=== PATIENT | male | born 1985 | race Two or more races ===

== ENCOUNTER 2023-11-14 17:59 | Emergency (ER) | payer OTHER, SELFPAY ==
[2023-11-14 18:05] VITALS: BP 131/95
[2023-11-14 18:11] VITALS: BMI 23.0
[2023-11-14 18:11] LABS: % Basophils 1.3 % (0-2); % Eosinophils 4.6 % (0-6); % Immature Granulocytes 0.2 % (0-0.5); % Lymphocytes 26.2 % (20.5-51.1); % Monocytes 8.8 % (1.7-9.3); % Neutrophils 58.9 % (42.2-75.2); Absolute Basophils 0.1 10^3/uL (0-0.2); Absolute Eosinophils 0.3 10^3/uL (0-0.7); Absolute Lymphocytes 1.4 10^3/uL (1.2-3.4); Absolute Monocytes 0.5 10^3/uL (0.1-0.6); Absolute Neutrophils 3.2 10^3/uL (1.4-6.5); Hematocrit 40.7 % (39.0-52.0); Hemoglobin 13.8 g/dL (13.0-18.0); Mean Corp Hgb Conc. 33.9 g/dL (33.0-37.0); Mean Corpuscular Hgb 30.1 pg (27.0-31.0); Mean Corpuscular Volume 88.9 fL (80.0-94.0); Mean Platelet Volume 10.9 fL (7.4-10.4); Nucleated Red Blood Cells % 0 % (-); Platelet Count 162 10^3/uL (130-400); Red Blood Cell Count 4.58 10^6/uL (4.70-6.10); Red Cell Dist. Width 13.7 % (11.5-14.5); White Blood Cell Count 5.5 10^3/uL (4.8-10.8)
[2023-11-14 18:24] LABS: ALT (SGPT) 81 U/L (0-50); AST (SGOT) 131 U/L (17-59); Albumin 5.1 g/dl (3.5-5.0); Alkaline Phosphatase 72 U/L (38-126); Blood Urea Nitrogen 16 mg/dl (9-20); Calcium 9.5 mg/dl (8.4-10.2); Carbon Dioxide 16 mmol/L (22-30); Chloride 104 mmol/L (98-107); Estimated Creatinine Clearance > 125 ml/min; Glucose 93 mg/dl (70-99); Potassium 4.1 mmol/L (3.5-5.1); Sodium 142 mmol/L (135-145); Total Bilirubin 0.7 mg/dl (0.2-1.3); Total Protein 7.4 g/dl (6.3-8.2); eGFR > 60.00
--- NOTE | 2023-11-14 18:25 | ED.GENMED ---
History of Present Illness
<Charissa Dubon DO, Resident - Last Filed: 11/14/23 21:04>
General
Chief Complaint: Seizure
Source: patient, police and witness
Exam Limitations: none
Time Seen by Provider: 11/14/23 18:11
History of Present Illness
History of Present Illness:
Pt is a 38 YO M presenting to the ER after a witnessed seizure. He reports feeling tired but denies headaches, NV, dizziness, changes in vision, numbness/ tingling or pain. He drinks 1/5 of vodka or rum daily and last used meth this morning. He has
a history of seizures (last reported per patient in 2022) and has been out of Keppra for 2+ weeks.
If applicable-neuro sx onset
Onset of symptoms known: Yes
Date of onset of symptoms: 11/14/23
Past History
<Charissa Dubon DO, Resident - Last Filed: 11/14/23 21:04>
Past History
ED Past Medical History: Other (seizures)
Patient has exhibited threatening behavior?: No
Social History
Alcohol: Daily
Drug: Marijuana and Other (meth)
Living: [facility]
Review of Systems
<Charissa Dubon DO, Resident - Last Filed: 11/14/23 21:04>
Review of Systems
Constitutional: Reports fatigue
EENT: Reports no symptoms
Respiratory: Reports no symptoms
Cardiac: Reports no symptoms
ABD/GI: Reports no symptoms
Musculoskeletal: Reports no symptoms
Neurological: Reports no symptoms
Phy Exam
<Charissa Dubon DO, Resident - Last Filed: 11/14/23 21:04>
General Physical Exam
General Presentation: well appearing
General age: appears stated age
General Skin: warm and dry
General Habitus: normal
General Mental: alert
General Hydration: appears well hydrated
Eye Exam
Eye Exam: PERRL, cornea clear, conjunctiva normal and visual colon normal
Cardiovascular Exam
Cardiovascular Exam: regular rate/rhythm, no edema, no gallop, no JVD, no murmur and normal peripheral pulses
Pulmonary Exam
Pulmonary Exam: lungs clear, no respiratory distress, no rales, chest non tender, no crackles, no rhonchi, no stridor, no wheezing and no cough
Neurological Exam
Neurological Exam: alert, CN II-XII intact, no motor deficits, normal reflexs, no sensory deficits and speech normal
Musculoskeletal Exam
Musculoskeletal Exam: full ROM and no edema
Course
<Charissa Dubon DO, Resident - Last Filed: 11/14/23 21:04>
Orders/Labs/Results
Orders:
Orders
11/14/23 18:04
Alcohol Urgent
Complete Blood Count/With Diff Urgent
Comprehensive Metabolic Panel Urgent
Keppra (Levetiracetam) [S] Urgent
11/14/23 18:46
Levetiracetam Injectable [Keppra] 1,000 mg IV NOW STA
11/14/23 18:50
Levetiracetam [Keppra] 500 mg PO NOW STA
11/14/23 18:51
Levetiracetam [Keppra] 500 mg PO NOW STA
11/14/23 18:54
Lorazepam [Ativan] 1 mg IV NOW STA
11/14/23 18:56
CT Head W/o Iv Contrast Urgent
Comment:
Reason For Exam: seizure, head contusion
Abnormal Lab Results
11/14/23
18:04
RBC 4.58 L 10^6/uL
(4.70-6.10)
MPV 10.9 H fL
(7.4-10.4)
Carbon Dioxide 16 L mmol/L
(22-30)
AST 131 H U/L
(17-59)
ALT 81 H U/L
(0-50)
Albumin 5.1 H g/dl
(3.5-5.0)
11/14/23 18:04
11/14/23 18:04
Vital Signs
Initial and Last Documented VS:
Initial Vital Signs
Temp Pulse Resp BP Pulse Ox
98.1 F 102 18 131/95 97
11/14/23 18:05 11/14/23 18:05 11/14/23 18:05 11/14/23 18:05 11/14/23 18:05
Last Documented Vital Signs
Temp Pulse Resp BP Pulse Ox
98.1 F 96 23 131/89 99
11/14/23 18:05 11/14/23 20:45 11/14/23 20:45 11/14/23 19:00 11/14/23 20:45
tarun;Modesto Henriquez, - Last Filed: 11/14/23 19:16>
Orders/Labs/Results
Orders:
Orders
11/14/23 18:04
Alcohol Urgent
Complete Blood Count/With Diff Urgent
Comprehensive Metabolic Panel Urgent
Keppra (Levetiracetam) [S] Urgent
11/14/23 18:46
Levetiracetam Injectable [Keppra] 1,000 mg IV NOW STA
11/14/23 18:50
Levetiracetam [Keppra] 500 mg PO NOW STA
11/14/23 18:51
Levetiracetam [Keppra] 500 mg PO NOW STA
11/14/23 18:54
Lorazepam [Ativan] 1 mg IV NOW STA
11/14/23 18:56
CT Head W/o Iv Contrast Urgent
Comment:
Reason For Exam: seizure, head contusion
Abnormal Lab Results
11/14/23
18:04
RBC 4.58 L 10^6/uL
(4.70-6.10)
MPV 10.9 H fL
(7.4-10.4)
Carbon Dioxide 16 L mmol/L
(22-30)
AST 131 H U/L
(17-59)
ALT 81 H U/L
(0-50)
Albumin 5.1 H g/dl
(3.5-5.0)
11/14/23 18:04
11/14/23 18:04
Vital Signs
Initial and Last Documented VS:
Initial Vital Signs
Temp Pulse Resp BP Pulse Ox
98.1 F 102 18 131/95 97
11/14/23 18:05 11/14/23 18:05 11/14/23 18:05 11/14/23 18:05 11/14/23 18:05
Last Documented Vital Signs
Temp Pulse Resp BP Pulse Ox
98.1 F 96 23 131/89 99
11/14/23 18:05 11/14/23 20:45 11/14/23 20:45 11/14/23 19:00 11/14/23 20:45
<Charissa Dubon DO, Resident - Last Filed: 11/14/23 21:04>
MDM/Problems Addressed
Differential Diagnosis Includes:
seizure, alcohol withdrawal
MDM/Problems Addressed:
Pt is a 38 YO M presenting to ED after witnessed seizure. He is stable and was given 1000 mg PO Keppra and 1 mg IV Ativan. Head CT ordered to rule out bleed. 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
frontal hematoma. Recommendations to resume Keppra 500 mg twice daily.
Chronic conditions affecting care:
Seizures
Acute Exacerbation and/or Progression of Chronic Illness:
Seizures
<Charissa Dubon DO, Resident - Last Filed: 11/14/23 21:04>
*Radiology
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
*Pulse Oximetry
Patient hypoxic: no
*EKG
Interpreted by ED Provider?: NA
*[employer] Operator Interpretation
Rate: [employer] Operator- N/A
*Critical Care Note
Total Time (30-74mins, 75-104mins- exclusive of procedures): Not Applicable
<Charissa Dubon DO, Resident - Last Filed: 11/14/23 21:04>
Patient Management
Social determinants of health affecting care: Living situation
Discussion with other providers: Residential staff
ED Attending Note
<Charissa Dubon DO, Resident - Last Filed: 11/14/23 21:04>
-
Portions of this chart may have been created with voice recognition software.� Occasional wrong word or��sound alike� substitutions may have occurred due to the inherent limitations of voice recognition software.
<Modesto Henriquez, DO - Last Filed: 11/14/23 19:16>
ED Attending Note
Patient seen and examined by attending physician: Yes
I performed a history and physical exam of patient and discussed management with resident, I reviewed resident's note and agree with documented findings and plan of care.: Yes
ED Attending Note:
Pt presents from [facility] after having a seizure. Patient admits to a history of epilepsy. He has not taken his Keppra in an unknown period of time. Patient cannot recall the dose of Keppra that he takes. He does not
see a neurologist regularly. Patient also endorses daily alcohol, methamphetamine use. His last alcohol ingestion was today at 8 AM. He states he did strike the front of his head when he had the seizure. He has some pain on the right frontal
scalp.
General: Awake, Alert, Oriented X3. No acute distress.
Vitals: unremarkable
Head: Small right frontal scalp hematoma
Eyes: Pupils equal, EOMI
Throat: Airway intact, no exudates
Neck: Trachea midline, no tenderness palpation of the cervical spine
Lungs: Clear and equal b/l
Heart: Regular rate, no murmurs
Neuro: Cranial nerves intact, muscle strength equal bilaterally, cerebellar exam normal
Skin: Warm, dry, no rash
Extremities: pulses equal b/l, no edema
Head CT due to head trauma. Patient will be given a loading dose of 1000 mg of Keppra here. Will provide him with a prescription for Keppra that he can either fill with at the present can used to provide his daily medications. Give him a
milligram of Ativan in case this seizure is a alcohol withdrawal seizure. Present has a alcohol withdrawal protocol that they can follow when the patient is discharged.
Discharge Plan
Departure
Patient Disposition: Residential
Date of Disposition: 11/14/23
Time of Disposition: 21:04
Patient with high blood pressure during this ER visit?: Yes
Condition: Good
Discharge Problem:
Seizure
Instructions: Seizures, Adult (DC), BLOOD PRESSURE
Prescriptions:
No Action
No Current Medications
0
Referrals:
[facility] [Family Provider] -
Interventions
Interventions:
*Risk Screen - Suicide Last Done: 11/14/23 18:12
*General Assessment Last Done: 11/14/23 18:12
*Neglect/Abuse Screening Last Done: 11/14/23 18:12
*ED COVID-19 Vaccine History Last Done: 11/14/23 18:12
ED- Cardiac Assessment Last Done: 11/14/23 18:28
ED- Neurological Assessment Last Done: 11/14/23 18:28
ED- Pulmonary Assessment Last Done: 11/14/23 18:28
Discharge Date and Time
Print Language: AMHARIC
[2023-11-14 18:33] LABS: Alcohol 60 mg/dl
[2023-11-14 19:00] VITALS: BP 131/89
[2023-11-14] MEDS: KEPPRA 500 MG PO ×2 (19:02)
[2023-11-14] MEDS: ATIVAN 1 MG IV (19:02)
[2023-11-14 21:25] VITALS: BP 144/98
[2023-11-17 02:47] LABS: Keppra (Levetiracetam) <2 ug/mL (10-40)
== END 2023-11-14 21:35 ==
LOC: EMR 17:59
PROVIDERS: EMERGENCY PHYSICIAN Emergency Medicine
DX: S00.03XA Contusion of scalp, initial encounter (principal); G40.909 Epilepsy, unspecified, not intractable, without status epilepticus; R53.83 Other fatigue; X58.XXXA Exposure to other specified factors, initial encounter; R03.0 Elevated blood-pressure reading, without diagnosis of hypertension; F10.10 Alcohol abuse, uncomplicated; F15.10 Other stimulant abuse, uncomplicated; Z91.148 Patient's other noncompliance with medication regimen for other reason
CPT/HCPCS: 99284; 70450; 80053; 80177; 82077; 85025